=== PATIENT | male | born 1985 | race Caucasian/White ===

== ENCOUNTER 2016-09-24 07:59 | Emergency (ER) | payer MEDICAID ==
[~2016-09-24] VITALS: Ht 172.7 cm; Wt 68.0 kg
[2016-09-24] MEDS ORDERED: VANCOMYCIN 1GM/250ML D5W 250 ML IV ONE (09:00)
[2016-09-24] MEDS ORDERED: SODIUM CHLORIDE 0.9% 1,000 ML IV ONE ×2 (09:00→16:30)
[2016-09-24] MEDS ORDERED: KETOROLAC TROMETH 30 MG/ML 1ML VIAL IV ONE ×2 (09:00→16:45)
[2016-09-24] MEDS ORDERED: PIPERACILLIN-TAZOB 3.375GM 100 ML IV ONE (09:00)
[2016-09-24 09:20] LABS: Basophils # (auto) 0.3 uL; Basophils % (auto) 2.4 % (0.0-2.0); CONDITION AutoValidated; Eosinophils # (auto) 0 uL; Eosinophils % (auto) 0.4 % (0.0-7.0); Hematocrit 40.9 % (41.0-53.0); Hemoglobin 13.9 g/dL (13.5-17.5); Lymphocytes # (auto) 1.8 uL; Lymphocytes % (auto) 14.4 % (10.0-50.0); Mean Corpuscular Hemoglobin 30.4 pg (28.0-32.0); Mean Corpuscular Volume 89.5 fL (80.0-100.0); Mean Platelet Volume 7.9 fL (7.4-10.4); Monocytes # (auto) 0.7 uL; Monocytes % (auto) 5.7 % (0.0-12.0); Neutrophils # (auto) 9.5 uL; Neutrophils % (auto) 77.1 % (37.0-80.0); Platelet Count (auto) 293 10^3/uL (140-450); Red Cell Distribution Width 13.6 % (11.6-16.0); White Blood Cell 12.4 10^3/uL (4.4-10.8)
[2016-09-24 09:39] LABS: Albumin 3.4 g/dL (3.4-5.0); BUN/Creatinine Ratio 15.3; Bilirubin, Total 0.8 mg/dL (0.2-1.0); Calcium 8.6 mg/dL (8.5-10.1); Potassium 4.4 mmol/L (3.5-5.1); Total Protein 7.3 g/dL (6.4-8.2)
[2016-09-24] MEDS ORDERED: PIPERACILLIN-TAZOB 3.375GM 100 ML IV SCH (16:00)
[2016-09-24 17:37] VITALS: BP 116/66
== END 2016-09-24 17:42 | disposition short-term general hospital (02) ==
LOC: ER 07:59
DX: L02.416 Cutaneous abscess of left lower limb (principal)
CPT/HCPCS: 36415; 73564; 73721; 80053; 85025; 85652; 87040; 87077; 87186; 87205; 93971; 96365; 96366; 96367; 96375; 96376; 99285; J1885; J2543; J3370; J7030